=== PATIENT | male | born 1965 | race Caucasian/White ===

== ENCOUNTER 2020-07-09 09:02 | Inpatient (IN) ==
[2020-07-09] MEDS ORDERED: 0.9 % Sodium Chloride 1,000 ML ONE ×3 (09:19→12:06)
[2020-07-09] MEDS ORDERED: ISOVUE-370 200 ML INFUS..BTL ONE (09:19)
[2020-07-09] MEDS ORDERED: *HR* Heparin 10,000 UNIT/10 ML VIAL ONE (09:19)
[2020-07-09] MEDS ORDERED: Heparin 1,000 UNITS/500 mL 500 ML ONE (09:19)
[2020-07-09] MEDS ORDERED: Nitroglycerin 1,000 MCG/10 ML VIAL IV ONE (09:19)
[2020-07-09] MEDS ORDERED: *HR* Ticagrelor 90 MG TABLET PO ONE (09:20)
[2020-07-09 09:22] LABS: Basophils # 0.1 K/mcL (0.0-0.2); Basophils % 0.6 %; Eosinophils # 0.1 K/mcL (0.0-0.6); Eosinophils % 0.4 %; Hematocrit 46.5 % (37.5-50.1); Hemoglobin 15.7 g/dL (12.9-16.9); Immature Granulocytes % 0.3 % (0-4); Lymphocytes # 1.2 K/mcL (0.6-4.6); Lymphocytes % 8.2 %; Mean Corpuscular HGB Conc 33.8 g/dL (31.6-35.5); Mean Corpuscular Hemoglobin 30.1 pg (28.0-33.3); Mean Corpuscular Volume 89.3 fL (83.0-100.0); Mean Platelet Volume 11.5 fL (9.4-12.4); Monocytes # 0.8 K/mcL (0.0-1.3); Monocytes % 5.9 %; Neutrophils # 11.9 K/mcL (1.6-8.9); Platelet Count 220 K/mcL (140-400); Red Blood Count 5.21 M/mcL (4.19-5.50); Red Cell Distribution Width 12.6 % (11.5-14.5); Segmented Neutrophils % 84.6 %
[2020-07-09] MEDS ORDERED: *HR* FentaNYL (PF) 100 MCG/2 ML VIAL ONE (09:23)
[2020-07-09] MEDS ORDERED: *HR* Midazolam HCl 2 MG/2 ML VIAL ONE (09:23)
[2020-07-09] MEDS ORDERED: *HR* Heparin 5,000 UNIT/ML VIAL IVP PRN ×2 (09:26)
[2020-07-09] MEDS ORDERED: *HR* Heparin 5,000 UNIT/ML VIAL IVP ONE (09:26)
[2020-07-09] MEDS ORDERED: *HR* Heparin 5,000 UNIT/ML VIAL ONE (09:26)
[2020-07-09 09:30] LABS: INR 1.1; Prothrombin Time 13.2 Seconds (9.4-12.1)
[2020-07-09] MEDS ORDERED: Heparin 25,000UNIT/250ML 1/2NS 25,000 UNIT/250 ML IV.SOLN IVC SCH (09:30)
[2020-07-09 09:32] LABS: Activated Partial Thrombo Time 25.3 Seconds (26.0-36.0)
[2020-07-09] MEDS ORDERED: Tirofiban 12.5 MG/250ML 12.5 MG/250 ML BAG ONE (09:34)
[2020-07-09 09:38] LABS: Heparin anti-factor XA UFH < 0.04 IU/mL (0.30-0.70)
[2020-07-09 09:45] LABS: BUN/Creatinine Ratio 10 (6-26); Blood Urea Nitrogen 10 mg/dL (6-20); Carbon Dioxide 27 mEq/L (23-29); Chloride 104 mEq/L (98-107); Glucose 145 mg/dL (70-105); Osmolality,Calculated 288 (280-300); Potassium 4.7 mEq/L (3.5-5.1); Sodium 138 mEq/L (136-145); Troponin I 0.13 ng/mL (< 0.04); eGFR For African Americans > 60 (> 60); eGFR For Non-African Americans > 60 (> 60)
[2020-07-09] MEDS ORDERED: *HR* Ticagrelor 90 MG TABLET ONE (09:46)
[2020-07-09] MEDS ORDERED: *HR* Atropine Sulfate 1 MG/10 ML SYRINGE ONE ×2 (09:49→12:06)
[2020-07-09] MEDS ORDERED: Perflutren Lipid Microsphere 1.3 ML in 0.9 % Sodium Chloride 8.7 ML IVP PRN (10:19)
[2020-07-09] MEDS ORDERED: Tirofiban 12.5 MG/250ML 12.5 MG/250 ML BAG IVC SCH (10:30)
[2020-07-09] MEDS: *HR* Ticagrelor 90 MG TABLET PO SCH (21:22)
[2020-07-10 05:29] LABS: Basophils # 0.1 K/mcL (0.0-0.2); Basophils % 0.5 %; Eosinophils # 0.1 K/mcL (0.0-0.6); Eosinophils % 0.7 %; Hemoglobin 14.6 g/dL (12.9-16.9); Immature Granulocytes % 0.3 % (0-4); Lymphocytes # 1.7 K/mcL (0.6-4.6); Lymphocytes % 14.3 %; Mean Corpuscular HGB Conc 33.2 g/dL (31.6-35.5); Mean Corpuscular Hemoglobin 30.6 pg (28.0-33.3); Mean Corpuscular Volume 92.2 fL (83.0-100.0); Mean Platelet Volume 11.9 fL (9.4-12.4); Monocytes % 8.8 %; Neutrophils # 8.8 K/mcL (1.6-8.9); Platelet Count 203 K/mcL (140-400); Red Blood Count 4.77 M/mcL (4.19-5.50); Red Cell Distribution Width 12.9 % (11.5-14.5); Segmented Neutrophils % 75.4 %; White Blood Count 11.7 K/mcL (4.3-11.1)
[2020-07-10 06:27] LABS: BUN/Creatinine Ratio 15 (6-26); Blood Urea Nitrogen 12 mg/dL (6-20); Calcium 9.3 mg/dL (8.6-10.3); Carbon Dioxide 23 mEq/L (23-29); Chloride 105 mEq/L (98-107); Glucose 107 mg/dL (70-105); Osmolality,Calculated 286 (280-300); Potassium 3.5 mEq/L (3.5-5.1); Sodium 138 mEq/L (136-145); eGFR For African Americans > 60 (> 60); eGFR For Non-African Americans > 60 (> 60)
[2020-07-10] MEDS: *HR* Ticagrelor 90 MG TABLET PO SCH ×2 (08:39→19:35)
[2020-07-10] MEDS ORDERED: Metoprolol XL (24 HR) Succ 25 MG TAB.ER.24H PO SCH (09:00)
[2020-07-10] MEDS ORDERED: Aspirin Enteric Coated 81 MG Tablet PO SCH (09:00)
[2020-07-11] MEDS: *HR* Ticagrelor 90 MG TABLET PO SCH (07:25)
[2020-07-11] MEDS ORDERED: lisinopriL 20 MG TABLET PO SCH (09:00)
[2020-07-11] MEDS ORDERED: Aspirin Enteric Coated 81 MG Tablet PO SCH (09:00)
[2020-07-11] MEDS ORDERED: amLODIPine 5 MG TABLET PO SCH (09:00)
[2020-07-11] MEDS ORDERED: Metoprolol XL (24 HR) Succ 25 MG TAB.ER.24H PO SCH (09:00)
[2020-07-11 11:19] VITALS: BP 119/67
== END 2020-07-11 13:36 | disposition other institution (70) | DRG 247 ==
LOC: EMEROOARM 09:02 → ICNU 09:32 → 2NNU 07-10 22:14
PROVIDERS: ADMIT Internal Medicine Cardiovascular Disease; ATTEND Internal Medicine Cardiovascular Disease